=== PATIENT | female | born 1970 | race Hispanic/Latino ===

== ENCOUNTER 2024-04-02 07:55 | Outpatient (CLI) | payer OTHER | END 2024-04-02 07:56 | disposition home or self-care (01) | LOC: BICMAMMO 07:55 | PROVIDERS: ATTEND Family Medicine | DX: N63.23 Unspecified lump in the left breast, lower outer quadrant (principal) | CPT/HCPCS: 76642; 77066; G0279 ==

== ENCOUNTER → 2024-04-16 | Day surgery (SDC) | payer OTHER | LOC: BICULT 12:32 | PROVIDERS: ATTEND Family Medicine | PROC: 0HB5XZX Excision of Chest Skin, External Approach, Diagnostic (ICD-10-PCS; principal; 2024-04-16) | DX: R92.8 Other abnormal and inconclusive findings on diagnostic imaging of breast (principal); E66.9 Obesity, unspecified; M54.50 Low back pain, unspecified; H52.00 Hypermetropia, unspecified eye; D24.2 Benign neoplasm of left breast | CPT/HCPCS: 19083; 88305; 88341; 88342 ==